=== PATIENT | female | born 1980 | race African-American/Black ===

== ENCOUNTER 2018-09-03 18:19 | Emergency (ER) | payer OTHER, SELFPAY ==
[2018-09-03] MEDS ORDERED: Ibuprofen 800 MG TAB ONE (19:19)
== END 2018-09-03 21:13 | disposition home or self-care (01) ==
LOC: ERS 18:19
DX: S16.1XXA Strain of muscle, fascia and tendon at neck level, initial encounter (principal); S70.12XA Contusion of left thigh, initial encounter; S80.02XA Contusion of left knee, initial encounter; F41.9 Anxiety disorder, unspecified; V43.52XA Car driver injured in collision with other type car in traffic accident, initial encounter
CPT/HCPCS: 99284